=== PATIENT | female | born 1955 | race Caucasian/White ===

== ENCOUNTER 2023-03-30 19:09 | Emergency (ER) | payer MEDICARE, BC ==
[~2023-03-30] VITALS: Ht 167.6 cm; Wt 88.5 kg
[2023-03-30] MEDS ORDERED: METH-807 PO (21:58)
[2023-03-30] MEDS ORDERED: NAPR-1009 PO (21:58)
[2023-03-31] VITALS: BP 128/75; TEMP 97.5; O2SAT 97
== END 2023-03-30 22:10 | disposition home or self-care (01) ==
LOC: ER 19:16
DX: S13.4XXA Sprain of ligaments of cervical spine, initial encounter (principal); S09.90XA Unspecified injury of head, initial encounter; Z79.899 Other long term (current) drug therapy; V43.52XA Car driver injured in collision with other type car in traffic accident, initial encounter; Y93.89 Activity, other specified; Y92.410 Unspecified street and highway as the place of occurrence of the external cause; Y99.8 Other external cause status
CPT/HCPCS: 70450; A4663